=== PATIENT | female | born 1990 | race Caucasian/White ===

== ENCOUNTER 2017-11-20 21:30 | Inpatient (IN) | payer OTHER ==
[~2017-11-20] VITALS: Ht 172.7 cm; Wt 167.8 kg
[~2017-11-20 21:30] MED LIST: FLINTSTONES M100 MCG PO; WELLBUTRIN XL300 MG PO; XANAX0.5 MG PO
[2017-11-21 09:30] VITALS: BP 143/71
[2017-11-21 15:17] VITALS: BP 123/71
[2017-11-21 19:44] VITALS: BP 123/67
[2017-11-22] VITALS: BP 132/72
[2017-11-22 03:50] VITALS: BP 117/63
[2017-11-22 07:00] LABS: HEMOGLOBIN 12.1 G/DL (11.9-15.5); MCH 29.1 PG (29.0-34.0); MCHC 32.7 G/DL (30.0-36.0); PLATELET COUNT 159 K/uL (156-360); RBC DIS.WIDTH-CV 13.4 % (11.8-14.6); RBC DIS.WIDTH-SD 43.5 % (39-53); RED BLOOD COUNT 4.16 M/uL (3.80-5.20); WHITE BLOOD COUNT 10.5 K/uL (4.1-10.2)
[2017-11-22 07:03] LABS: MCV 88.9 FL (83-99)
[2017-11-22 07:09] VITALS: BP 113/77
[2017-11-22] MEDS ORDERED: PERCOCET 5/31 TABLET PO (11:00)
[2017-11-22] MEDS ORDERED: PANTOPRAZOLE SO40 MG PO (11:00)
== END 2017-11-22 11:17 | disposition home or self-care (01) | DRG 620 ==
LOC: ENRESERV 21:30 → ENRESERVDT 11-21 → ENRESERVTM 11-21 → ENRESERV 11-21 → 2SOUTH 11-21 08:25 → ENRESERV 11-21 11:06 → 2EAST 11-21 14:52
PROVIDERS: Surgery
PROC: 0DB64Z3 Excision of Stomach, Percutaneous Endoscopic Approach, Vertical (ICD-10-PCS; principal; 2017-11-21)
DX: E66.01 Morbid (severe) obesity due to excess calories (principal); Z68.43 Body mass index [BMI] 50.0-59.9, adult; F33.9 Major depressive disorder, recurrent, unspecified; Z98.84 Bariatric surgery status; E28.2 Polycystic ovarian syndrome; F41.9 Anxiety disorder, unspecified
CPT/HCPCS: 82948; 85027; C9113; J0131; J0690; J1100; J1170; J1644; J1650; J1885; J2250; J2405; J2550; J2710; J2765; J3010; J3480; J7120; J7643; Q0175; S0020